=== PATIENT | female | born 1945 | race Caucasian/White ===

== ENCOUNTER 2016-08-22 01:16 | Inpatient (IN) | payer OTHER ==
[~2016-08-22] VITALS: Ht 165.1 cm; Wt 65.2 kg
--- NOTE | ~2016-08-22 | EKG ---
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
--- NOTE | ~2016-08-22 | 2DMMODE ---
[facility] [employer] [place] [address] 2 D/M-MODE ECHOCARDIOGRAM Name: EMILY TAO Room #: 218-P ADM IN M.R.#: [id number] Admission: 08/22/16 Attend Phys: Og Barkley Discharge: Date of : 41 Date of Service: 08/23/16 1038 Report #: [id number] THIS REPORT FOR: //name// Transthoracic Echocardiography Ordering physician: Alana Arroyo Referring physician: Alana Arroyo Manoj K[employer] Instructor: MIGUEL Abbott Indications/History: Chest pain, HTN. BP: 150 / HR: 60bpm Height: 65in Weight: 142.7lb 74 Study data: M-mode, complete 2D, complete spectral Doppler, and color Doppler. Location: Echo laboratory. Routine. Image quality was good. 2D measurements Normal Normal LVID ED 36.4mm 36-57 IVS ED 12.1mm 6-11 LVID ES 26mm 23-40 LVPW ED 12mm 6-11 LA volume 23ml/m2 16-28 AoRoot diam 30.2mm 21-37 index ED LVOT diameter 19mm 18-23 Findings: Left ventricle: The cavity size was normal. Wall thickness was increased in a pattern of mild LVH. Systolic function was normal. The estimated ejection fraction was in the range of 55% to 60%. Wall motion was normal. Right ventricle: The cavity size was normal. Systolic function was normal. Right atrium: The atrium was normal in size. Left atrium: The atrium was normal in size. Volume index: 23ml/m2 (S). Aortic valve: Trileaflet; mildly calcified leaflets. Doppler: There was no stenosis. Trivial regurgitation. Peak velocity: 127.8cm/s (S). [facility] [address] [place] [address] 2 D/M-MODE ECHOCARDIOGRAM Name: EMILY TAO Room #: 218-P ADM IN [place]#: [id number] Admission: 08/22/16 Attend Phys: Og Barkley Discharge: Date of : 41 Date of Service: 08/23/16 1038 Report #: [id number] Mitral valve: Mildly calcified annulus. Doppler: There was no evidence for stenosis. Trivial regurgitation. Peak E-wave velocity: 68.6cm/s. Peak A-wave velocity: 98.8cm/s. Tricuspid valve: Structurally normal valve. Doppler: There was no evidence for stenosis. Trivial regurgitation. Regurgitant peak velocity: 223.6cm/s. Peak RV-RA gradient: 20mm Hg (S). Pulmonic valve: Structurally normal valve. Doppler: There was no evidence for stenosis. Trivial regurgitation. Pericardium: There was no pericardial effusion. Aorta: Aortic root: The aortic root was normal in size. Pulmonary artery: Systolic pressure was estimated to be 25mm Hg. Diastolic function: Doppler parameters are consistent with abnormal left ventricular relaxation (grade 1 diastolic dysfunction). Systemic veins: Inferior vena cava: The vessel was normal in size; the respirophasic diameter changes were in the normal range (= 50%). Conclusions 1. Left ventricle: The cavity size was normal. Wall thickness was increased in a pattern of mild LVH. Systolic function was normal. The estimated ejection fraction was in the range of 55% to 60%. Doppler parameters are consistent with abnormal left ventricular relaxation (grade 1 diastolic dysfunction). 2. Right ventricle: The cavity size was normal. 3. Left atrium: The atrium was normal in size. 4. Aortic valve: Trileaflet; mildly calcified leaflets. There was no stenosis. 5. Mitral valve: Mildly calcified annulus. Trivial regurgitation. 6. Tricuspid valve: Trivial regurgitation. 7. Pericardium, extracardiac: There was no pericardial effusion. <ELECTRONICALLY SIGNED> By: Phi Wren MD 08/23/16 1138 1038 1138 Phi Wren MD /dayana
--- NOTE | ~2016-08-22 | CARDNUC ---
[facility] [place] [address] CARDIAC NUCLEAR IMAGING REPORT Name: EMILY TAO Room #: 218-P [facility] IN .R.#: [id number] Admission: 08/22/16 Attend Phys: Og Barkley Discharge: 08/23/16 Date of : 41 Date of Service: 08/23/16 1342 Report #: [id number] THIS REPORT FOR: //name// CC: Terrance Cole DATE OF SERVICE: 08/23/2016 Myocardial perfusion imaging study using regadenoson: PRIMARY CARE PHYSICIAN: . GENDER: Female. ELECTRONIC BENCH TECHNICIAN: Dr. Michael Linares. INDICATION: Chest pain. CORONARY HISTORY: None. CARDIOVASCULAR RISK FACTORS: Age, hypertension, family history. CARDIAC MEDICATIONS: Beta brandon and Norvasc. TYPE OF STUDY: The patient underwent a SPECT study. STRESS PROTOCOL: A total of 0.4 mg of regadenoson was injected intravenously, followed by Cardiolite. The patient did not ambulate during the procedure. HEMODYNAMIC DATA: The resting heart rate was 74 beats per minute, with a blood pressure of 150/70 mmHg. Following regadenoson, the heart rate then went up to 93 beats per minute and the systolic blood pressure did not significantly change. The patient had symptoms consistent with regadenoson, but no chest discomfort. ELECTROCARDIOGRAM: The resting electrocardiogram revealed sinus rhythm, nonspecific T-wave abnormalities. Following regadenoson, there were no significant arrhythmias or ST segment changes. PERFUSION IMAGING: Myocardial perfusion imaging was performed using Cardiolite, 11.8 mCi for the resting images and 35.4 mCi for the stress images. This was a same-day rest-stress imaging protocol. Gated SPECT images were obtained. Comparison of the post-pharmacologic stress and rest images reveal homogeneous uptake of isotope within all myocardial segments. The gated portion of the study revealed normal global and segmental LV systolic function, ejection fraction of 70%. [facility] [email or web address] [address] CARDIAC NUCLEAR IMAGING REPORT Name: DINHEMILY Room #: 218-P DIS IN M.R.#: [id number] Admission: 08/22/16 Attend Phys: Og Barkley Discharge: 08/23/16 Date of : 41 Date of Service: 08/23/16 1342 Report #: [id number] IMPRESSION: 1. Clinical response, nondiagnostic. 2. Stress ECG response, nonischemic. 3. Perfusion imaging, nonischemic. 4. Ventricular function, normal. CONCLUSION: This study is of low probability for inducible ischemia or prior infarct. There is normal global and segmental LV systolic function. <ELECTRONICALLY SIGNED> By: Phi Wren MD 08/24/16 0807 1342 1627 Phi Wren MD /thomas
[2016-08-22 03:00] VITALS: BP 164/70
[2016-08-22 03:07] LABS: HEMATOCRIT 40.6 % (37.0-47.0); HEMOGLOBIN 13.9 gm/dL (12.0-15.0); MCH 31.3 pg (26.0-34.0); MCHC 34.3 % (28.0-37.0); MCV 91.1 fL (80.0-100.0); RBC 4.45 mil/uL (4.20-5.00); RDW 13.3 % (10.5-14.5); WBC 7.3 thou/uL (4.0-11.0)
[2016-08-22 03:25] LABS: CALCIUM 8.8 mg/dL (8.5-10.1); CREATININE 0.8 mg/dL (0.6-1.3); POTASSIUM 4.2 mmol/L (3.5-5.1)
[2016-08-22 03:34] LABS: TROPONIN-I 0.25 ng/mL (<0.04-0.07)
[2016-08-22] MEDS ORDERED: COLCRYS0.6 MG PO (03:42)
[2016-08-22] MEDS ORDERED: LOPRESSOR50 PO (03:46)
[2016-08-22] MEDS ORDERED: XANAX 0.25 MG0.25 MG PO (03:47)
[2016-08-22] MEDS ORDERED: ZYRTEC10 M4 PO (03:48)
[2016-08-22] MEDS ORDERED: PROBIOTIC1 EAC2 PO (03:49)
[2016-08-22] MEDS ORDERED: B COMPLETE1 EAC1 PO (03:50)
[2016-08-22] MEDS ORDERED: PREMARIN0.3 MG PO (03:51)
[2016-08-22] MEDS ORDERED: AMLODIPINE BESY10 MG PO (04:12)
[2016-08-22 08:10] VITALS: BP 180/63
[2016-08-22 11:55] VITALS: BP 190/58
[2016-08-22 16:25] VITALS: BP 137/62
[2016-08-22 19:24] VITALS: BP 146/78
[2016-08-22 23:58] VITALS: BP 147/75
[2016-08-23 03:52] VITALS: BP 163/77
[2016-08-23 04:34] LABS: CHOLESTEROL 279 mg/dL (<200); HDL CHOLESTEROL 69 mg/dL (>40); LDL CHOLESTEROL 174 mg/dL (<100); TRIGLYCERIDE 182 mg/dL (<150); VLDL 36 mg/dL (<40)
[2016-08-23 04:35] LABS: SERUM ASSESSMENT Clear
[2016-08-23 08:30] VITALS: BP 159/82
[2016-08-23 11:55] VITALS: BP 143/68
[2016-08-23 14:55] VITALS: BP 143/68
[2016-08-23] MEDS ORDERED: ATORVASTATIN CA40 MG PO (17:12)
[2016-08-23] MEDS ORDERED: ASPIR 8181 MG PO (17:12)
[2016-08-23] MEDS ORDERED: COZAAR 50 MG TA50 M1 PO (17:13)
== END 2016-08-23 17:48 | disposition home or self-care (01) | DRG 282 ==
LOC: ICU 01:16 → 2N 02:16
PROVIDERS: Nurse Practitioner
DX: I21.4 Non-ST elevation (NSTEMI) myocardial infarction (principal); I10 Essential (primary) hypertension; I16.0 Hypertensive urgency; E78.5 Hyperlipidemia, unspecified; I25.110 Atherosclerotic heart disease of native coronary artery with unstable angina pectoris; Z96.651 Presence of right artificial knee joint; Z90.710 Acquired absence of both cervix and uterus; Z82.49 Family history of ischemic heart disease and other diseases of the circulatory system; Z87.891 Personal history of nicotine dependence; Z79.899 Other long term (current) drug therapy; Z79.82 Long term (current) use of aspirin; I20.0 Unstable angina; M79.602 Pain in left arm; M79.601 Pain in right arm
CPT/HCPCS: 10081

== ENCOUNTER 2017-09-13 06:33 | Observation (INO) | payer OTHER, BC ==
[~2017-09-13] VITALS: Ht 165.1 cm; Wt 65.3 kg
--- NOTE | ~2017-09-13 | CATHLAB ---
[facility] [place] [address] INVASIVE PROCEDURE REPORT Name: DINHEMILY [facility] #[id number] Admission: 09/13/17 Attend Phys: Aubrey Gonzalez, Discharge: Date of : 41 Date of Service: 09/13/17 1341 Report #: [id number] THIS REPORT FOR: //name// APPROVED REPORT Patient Details Patient Status: Out-Patient Room #: The patient is a 71 year-old female Event Personnel Aubrey Gonzalez Acute Care Physical Therapist, Omar Drummond RN, Molly Gaspar, David Kumar Monitor Procedures Performed Left Heart Cath w/or w/o Coronaries [id number] [facility] Renal Bilateral Peripheral Angiography [id number] CVRENALBIL LEÓN Place w/wo Plasty Single CIRC [id number] Indication Chest pain Risk Factors Dysplipidemia , Hypertension Procedure Narrative The Right Groin^ was infiltrated with 1% Lidocaine subcutaneous anesthesia. A PINNACLE 6FR Sheath #[id number] sheath was inserted into the RFA^. Coronary angiography was performed using coronary diagnostic catheters. The right coronary system was accessed and visualized with a JR4 catheter. The left coronary system was accessed and visualized with a JL4 catheter. The left ventricle was accessed and visualized with a PIGTAIL catheter. Left ventricular/Aortic Valve gradient assessed via catheter pullback. Left ventriculogram was performed in 30 degree projection. Closure device was deployed with a 6 Fr MYNXGRIP 6/7F #[id number]. Hemostasis was obtained with manual pressure following sheath removal without any complications. The patient tolerated the procedure well and there were no complications associated with the procedure. There was no hematoma. Intraoperative Conscious Sedation Sedation start time: 8.08 Case end Time: 9.06 Fentanyl 25 mcg Versed 1.5 mg Fluoro Time: 13.04 minutes [facility] [place] [address] INVASIVE PROCEDURE REPORT Name: EMILY TAO Room #: REG ERNIE Russ#: [id number] Admission: 09/13/17 Attend Phys: Aubrey Gonzalez, Discharge: Date of : 41 Date of Service: 09/13/17 1341 Report #: [id number] Dose: 2059 mGy Contrast Type and Amount: Omnipaque 335 ml Diagnostic Cath Left Main Normal LAD Mild 30% mid vessel plaquing Circumflex Severe 95% proximal stenosis 50% mid-circumflex prior to first and second marginal branches OM1 mild 20% proximal plaquing OM2 20-30% osteal plaquing 85% mid vessel stenosis OM3 75% osteal stenosis. Relatively small vessel beyond origin Right Coronary Dominant. Mild 20-30% proximal and mid vessel plaquing R PDA Large PDA, mild plaquing RPLV Moderately large, trifurcating. Mild mid vessel plaquing Left Ventriculography The left ventricle is normal in size with normal contractility. The left ventricular ejection fraction is estimated to be >70%. Left ventricular wall motion abnormalities are not present. There is no mitral insufficiency. Hemodynamics The aortic pressure is 156/61 mmHg with a mean of 102 mmHg. The left ventricular pressure is 166/8 mmHg with a mean of mmHg. The left ventricular end diastolic pressure is 26 mmHg. There was no gradient across the aortic valve upon pullback. Pullback from the left ventricle to the aorta revealed no gradient across the aortic valve. PCI Technique Lesion Anticoagulation was achieved with Heparin, Integrilin. Percutaneous coronary intervention was performed on the second marginal branch. The lesion stenosis prior to intervention was 85% with SUNIL 3 flow. A LAUNCHER 6FR EBU 3.5 #[id number] Guide Catheter was used to engage the left main ostium. A Luge Wire .014 x 182CM #[id number] Interventional Guidewire was used to cross the lesion. BALLOON DILATION A Balloon catheter Euphora RX 2.5 x 12 #[id number] was inserted and inflated up to 8atm for 26seconds. Repeat angiography revealed the following post-dilatation results: Moderate residual stenosis. [facility] [address] [place] [address] INVASIVE PROCEDURE REPORT Name: EMILY TAO Room #: REG CL [place]#: [id number] Admission: 09/13/17 Attend Phys: Aubrey Gonzalez, Discharge: Date of : 41 Date of Service: 09/13/17 1341 Report #: [id number] STENT DEPLOYMENT A drug-eluting stent RESOLUTE RX 2.5 X 14 #[id number] was inserted and inflated up to 12atm for 27seconds. Repeat angiography revealed the following post-stent deployment results: No residual stenosis. POST STENT DEPLOYMENT BALLOON DILATION A Balloon catheter TREK NC RX 2.5 X 12 #[id number] was inserted and inflated up to 16atm for 25seconds. Repeat angiography revealed the following post-dilatation results: No residual stenosis. Stent "fci" of third OM branch. Final angiography reveals 0 % stenosis with SUNIL 3 flow. PCI Technique Lesion 2 Percutaneous Coronary Intervention was performed on the proximal circumflex. Percutaneous coronary intervention was performed on the proximal circumflex artery segment. The lesion stenosis prior to intervention was 99% with SUNIL 3 flow. A LAUNCHER 6FR EBU 3.5 #239693 Guide Catheter was used to engage the left main ostium. A Luge Wire .014 x 182CM #[id number] Interventional Guidewire was used to cross the lesion. Balloon Dilation A Balloon catheter Euphora RX 2.5 x 12 #[id number] was inserted and inflated up to 10atm for 26seconds. Repeat angiography revealed the following post-dilatation results: moderate residual stenosis following angioplasty. Stent Deployment A drug-eluting stent RESOLUTE RX 3.0 X 15 #[id number] was inserted and inflated up to 10atm for 28seconds. Repeat angiography revealed the following post-stent deployment results: 0% residual stenosis. Post Stent Deployment Balloon Dilation A Balloon catheter TREK NC OTW 3.0 X 12 #[id number] was inserted and inflated up to 14atm for 30seconds. Repeat angiography revealed the following post-dilatation results: 0% residual stenosis. Final angiography reveals 0 % stenosis with SUNIL 3 flow. PCI Technique Lesion 3 Percutaneous Coronary Intervention was performed on the third marginal branch jailed by the 2.5mm Resolute stent. The lesion stenosis prior to intervention was 90% with SUNIL 3 flow. A LAUNCHER 6FR EBU 3.5 #[id number] Guide Catheter was used to engage the ostium. A Luge Wire .014 x 182CM #695263 Interventional [place] [address] INVASIVE PROCEDURE REPORT Name: EMILY TAO Room #: REG OgSadeGeronimoSade#: [id number] Admission: 09/13/17 Attend Phys: Aubrey Gonzalez, Discharge: Date of : 41 Date of Service: 09/13/171340 Report #: [id number] cross the lesion. Balloon Dilation A Balloon catheter [employer] RX 2.25 x 6 #[id number] was inserted and inflated up to 12atm for 60seconds. Repeat angiography revealed the following post-dilatation results: 0% residual stenosis with SUNIL III flow. Additional Inflation: 12atm for 60seconds. Conclusion 1. Normal global and regional systolic function EF 75% 2. Normal left main 3. Mild plaquing of mid LAD 4. Severe proximal Cx stenosis treated with 3.0 x 15 Resolute stent 5. Severe OM2 stenosis treated with 2.5 x 14mm Resolute stent. Stent "fci" of OM3, treated with PTCA; 0% residual stenosis 6. Mild atherosclerotic plaquign in single, bilateral renal arteries Recommendations Daily ASA with Plavix for at least one year Cardiac Rehabilitation Referral Aggressive Medical Therapy Medical Therapy Medications Administered JORDAN Inhibitor (any) Beta Tani (any) Statin (any) Clopidogrel Cardiac Rehabilitation Referral <ELECTRONICALLY SIGNED> By: Aubrey Gonzalez MD, [facility] 09/13/17 134 40 1341 Aubrey Gonzalez MD, FACC /INF
--- NOTE | ~2017-09-13 | EKG ---
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 CARSON : 1945 Requested By: Aubrey Gonzalez Order Number: [id number] MD: Aubrey Gonzalez Measurements Intervals [place] Rate: 65 P: 80 RI: 144 QRS: 63 QRSD: 102 T: 63 QT: 423 QTc: 440 Interpretive Statements Sinus rhythm Normal tracing Compared to ECG 09/13/2017 06:52:10 No significant changes Electronically Signed On 09-13-2017 16:31:04 DISTRIBUTION TECHNICIAN by Aubrey Gonzalez [email or web address] <ELECTRONICALLY SIGNED> By: Aubrey Gonzalez MD, [facility] 09/13/17 1631 1000 1000 Aubrey Gonzalez MD, [facility] /EPI
--- NOTE | ~2017-09-13 | D ---
[facility] [place] [address] DISCHARGE SUMMARY Name: EMILY TAO Room #: 218-P [facility] M.R.#: [id number] Admission: 09/13/17 Attend Phys: Aubrey Gonzalez MD, Discharge: Date of : 41 Report #: [id number] THIS REPORT FOR: //name// CC: Aubrey [facility] DISCHARGE DIAGNOSES: 1. Unstable angina/ non-q wave myocardial infarction. 2. Hypertension. 3. Dyslipidemia. 4. Mild renal atherosclerotic plaquing. 5. Coronary artery disease with stenting of the proximal circumflex with a 3.0 x 15 mm Resolute stent and stenting of the second marginal branch with a 2.5 x 12 mm Resolute stent; normal left ventricular systolic function. HISTORY OF PRESENT ILLNESS: For the complete details of the history of present illness, see dictated history and physical. Briefly, the patient is a 71-year-old woman with a history of hypertension, dyslipidemia and family history of premature coronary artery disease. She now presents with bilateral arm and chest heaviness, nitrate responsive. Given the nature of her symptoms, which were highly suspicious for angina, she was admitted for further evaluation. HOSPITAL COURSE: The patient was admitted and underwent angiography. The full details can be found under separate heading and dictation. In summary, left ventricular systolic function was found to be normal. Mild plaquing was evident in the LAD and right coronary arteries. The proximal circumflex exhibited a high grade 95% stenosis, successfully treated with a 3.0 x 15 mm Resolute medicated stent, dilated to close to 3.2 mm with a noncompliant balloon. There was severe disease in a second marginal branch, treated with a 2.5 x 14 mm Resolute medicated stent. This covered the third marginal branch, which resulted in stent detention, successfully ballooned through the times of this 2.5 mm stent. Overall, there was an excellent angiographic result with SUNIL 3 flow maintained in the vessel. There was a small expected troponin elevation following this complex intervention. The patient was treated with aspirin, clopidogrel, heparin and Integrilin in the periprocedural setting. She was ambulating with excellent groin hemostasis at the time of discharge. DISCHARGE MEDICINES: Include Plavix 75 mg daily, colchicine 0.6 mg daily, amlodipine 10 mg daily, atorvastatin 40 mg daily, aspirin 81 mg daily, Bystolic 5 mg daily and losartan 50 mg twice daily and nitroglycerin as needed. Arrangements were made for outpatient cardiac rehabilitation (Nancy) . Medications were reconciled. [address] [address] DISCHARGE SUMMARY Name: EMILY TAO Room #: 218-P [facility] M.R.#: [id number] Admission: 09/13/17 Attend Phys: Aubrey Gonzalez MD, Discharge: Date of : 41 Report #: [id number] DISCHARGE DIET: Low fat, low cholesterol, heart healthy. DISCHARGE FOLLOWUP: With Dr. Forrest Almaguer in 2-4 weeks, follow up with myself in 1 month. DISCHARGE ACTIVITY: As instructed post-catheterization. DISCHARGE CONDITION: Stable and improved. <ELECTRONICALLY SIGNED> By: Aubrey Gonzalez MD, FACC 09/14/17 0801 1618 1819 Aubrey Gonzalez MD, FACC /nt
--- NOTE | ~2017-09-13 | EKG ---
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 CARSON : 1945 Requested By: Aubrey Gonzalez Order Number: [id number] MD: Aubrey Gonzalez Measurements Intervals [place] Rate: 59 P: 77 CT: 144 QRS: 58 QRSD: 105 T: 58 QT: 437 QTc: 433 Interpretive Statements Sinus rhythm No significant abnormality Compared to ECG 08/22/2016 02:48:35 No significant changes Electronically Signed On 09-13-2017 7:59:20 ASSET RECOVERY SPECIALIST by Aubrey Gonzalez [email or web address] <ELECTRONICALLY SIGNED> By: Aubrey Gonzalez MD, [facility] 09/13/17 0759 0652 0652 Aubrey Gonzalez MD, [facility] /EPI
--- NOTE | ~2017-09-13 | EKG ---
[address] [address] ELECTROCARDIOGRAM REPORT Name: DEXTER TAOABELL Room #: 218-[facility]#: [id number] Admission: 09/13/17 Attend Phys: Aubrey Gonzalez MD, Discharge: Date of : 41 Report #: [id number] THIS REPORT FOR: //name// [facility] Test Date: 2017-09-14 Test Time: 06:07:13 Pat Name: EMILY TAO Department: Room: 218 Gender: F Service Dispatcher: : 1945 Requested By: Aubrey Gonzalez Order Number: [id number] MD: Aubrey Gonzalez Measurements Intervals [place] Rate: 70 P: 80 MS: 137 QRS: 72 QRSD: 89 T: 67 QT: 423 QTc: 457 Interpretive Statements Sinus rhythm No significant abnormality Compared to ECG 09/13/2017 10:00:06 No significant change was found Electronically Signed On 09-14-2017 8:47:49 FOWL BLOOD TESTER by Aburey Gonzalez [email or web address] <ELECTRONICALLY SIGNED> By: Aubrey Gonzalez MD, [facility] 09/14/17 0847 Aubrey Gonzalez MD, [facility] /EPI
[~2017-09-13 06:33] MED LIST: AMLODIPINE BESY10 MG PO; ASPIR 8181 MG PO; ATORVASTATIN CA40 MG PO; B COMPLETE1 EAC1 PO; COLCRYS0.6 MG PO; COZAAR 50 MG TA50 M1 PO; IMDUR 60 MG TAB60 M1 PO; LOPRESSOR50 PO; PREMARIN0.3 MG PO; PROBIOTIC1 EAC2 PO; XANAX 0.25 MG0.25 MG PO; ZYRTEC10 M4 PO
[2017-09-13 06:58] VITALS: BP 142/59
[2017-09-13] MEDS ORDERED: BYSTOLIC 5 MG5 M1 PO (07:03)
[2017-09-13] MEDS ORDERED: COZAAR 50 MG TA50 M2 PO (07:04)
[2017-09-13 15:00] VITALS: BP 126/49
[2017-09-13] MEDS ORDERED: PLAVIX 75 MG TA75 M1 PO (16:05)
[2017-09-13 19:40] VITALS: BP 134/60
[2017-09-14 00:15] VITALS: BP 147/59
[2017-09-14 03:14] LABS: HEMATOCRIT 34.4 % (37.0-47.0); HEMOGLOBIN 11.8 gm/dL (12.0-15.0); MCH 32.1 pg (26.0-34.0); MCHC 34.4 g/dL (28.0-37.0); MCV 93.4 fL (80.0-100.0); RBC 3.68 mil/uL (4.20-5.00); RDW 13.6 % (10.5-14.5)
[2017-09-14 03:22] LABS: CREATININE 0.8 mg/dL (0.6-1.0); POTASSIUM 4.3 mmol/L (3.5-5.1)
[2017-09-14 03:37] LABS: TROPONIN-I 1.4 ng/mL (<0.06)
[2017-09-14 04:30] VITALS: BP 154/75
[2017-09-14 08:00] VITALS: BP 152/68
[2017-09-14 10:16] VITALS: BP 152/68
== END 2017-09-14 11:10 | disposition home or self-care (01) ==
LOC: CATH 06:33 → 2N 14:51 → ENTRNSPT 09-14 11:05 → EDTRNSPTSTS 09-14 11:09 → 2N 09-14 11:10
PROVIDERS: Internal Medicine
DX: I25.110 Atherosclerotic heart disease of native coronary artery with unstable angina pectoris (principal); E78.5 Hyperlipidemia, unspecified; I10 Essential (primary) hypertension; I65.23 Occlusion and stenosis of bilateral carotid arteries; I70.1 Atherosclerosis of renal artery; Z87.891 Personal history of nicotine dependence

== ENCOUNTER → 2019-10-10 | Outpatient (CLI) | payer OTHER | LOC: SJCVC 10:16 | DX: I25.10 Atherosclerotic heart disease of native coronary artery without angina pectoris (principal); I10 Essential (primary) hypertension; I65.23 Occlusion and stenosis of bilateral carotid arteries; E78.5 Hyperlipidemia, unspecified ==

== ENCOUNTER → 2020-04-28 | Outpatient (CLI) | payer OTHER ==
[~2020-04-28] MED LIST changes: +BYSTOLIC 5 MG5 M1 PO; +COZAAR 50 MG TA50 M2 PO; +PLAVIX 75 MG TA75 M1 PO
== END ==
LOC: SJCVC 10:17
PROVIDERS: ATTEND Internal Medicine
DX: I25.10 Atherosclerotic heart disease of native coronary artery without angina pectoris (principal); R00.1 Bradycardia, unspecified; I10 Essential (primary) hypertension; E78.5 Hyperlipidemia, unspecified; I65.23 Occlusion and stenosis of bilateral carotid arteries; Z79.899 Other long term (current) drug therapy

== ENCOUNTER → 2020-10-31 | Outpatient (CLI) | payer OTHER | LOC: SJCVCIMAG 07:57 | PROVIDERS: ATTEND Internal Medicine | DX: I65.23 Occlusion and stenosis of bilateral carotid arteries (principal); R00.1 Bradycardia, unspecified; I25.10 Atherosclerotic heart disease of native coronary artery without angina pectoris; I10 Essential (primary) hypertension; E78.5 Hyperlipidemia, unspecified; I25.2 Old myocardial infarction; Z90.49 Acquired absence of other specified parts of digestive tract; Z90.710 Acquired absence of both cervix and uterus; Z98.890 Other specified postprocedural states; Z88.8 Allergy status to other drugs, medicaments and biological substances; Z79.82 Long term (current) use of aspirin; Z79.899 Other long term (current) drug therapy; Z87.891 Personal history of nicotine dependence; Z82.49 Family history of ischemic heart disease and other diseases of the circulatory system ==

== ENCOUNTER → 2021-05-28 | Outpatient (CLI) | payer OTHER | LOC: SJCVCIMAG 07:57 | PROVIDERS: ATTEND Internal Medicine | DX: I08.8 Other rheumatic multiple valve diseases (principal); I25.10 Atherosclerotic heart disease of native coronary artery without angina pectoris; I10 Essential (primary) hypertension; I65.23 Occlusion and stenosis of bilateral carotid arteries; E78.5 Hyperlipidemia, unspecified; Z87.891 Personal history of nicotine dependence; Z72.89 Other problems related to lifestyle; Z79.82 Long term (current) use of aspirin; Z79.899 Other long term (current) drug therapy; Z88.0 Allergy status to penicillin ==